=== PATIENT | female | born 1985 | race African-American/Black ===

== ENCOUNTER 2017-03-19 20:54 | Observation (INO) | payer MEDICARE, MEDICAID ==
[~2017-03-19] VITALS: Ht 180.3 cm; Wt 203.4 kg
[~2017-03-19 20:54] MED LIST: BUSP10TA PO; BUSP30TA PO; CIPR-9 PO; HYDR12.57 PO; HYDR25TA5 PO; LEVS0.123 PO; LEXA10TA PO; LEXA20TA PO; LORA-474 PO; MEDR4PAK PO; METO25TA3 PO; METR-1 PO; PEDISOL2 OROPHARYNG; REGL5TAB PO; VENTAER INH; ZOFR8TAB4 SL
[2017-03-19 23:59] VITALS: BP 120/83; PULSE 95; RESP 16; TEMP 98.2; O2SAT 99
[2017-03-20] MEDS ORDERED: ONDANSETRON HCL 4 MG/2 ML VIAL IV PUSH PRN (02:30)
[2017-03-20] MEDS ORDERED: ACETAMINOPHEN 500 MG CPLT PO PRN (02:30)
[2017-03-20 02:59] VITALS: BP 114/78; PULSE 68; RESP 18; TEMP 98.5; O2SAT 97
[2017-03-20 03:12] VITALS: O2SAT 98
[2017-03-20 03:13] LABS: TROPONIN I LESS THAN 0.02 NG/ML (0.02-0.05)
[2017-03-20] MEDS ORDERED: MORPHINE SULFATE 2 MG/ML INJ IV SCH (03:30)
[2017-03-20 05:20] VITALS: PULSE 85
[2017-03-20] MEDS ORDERED: diphenhydrAMINE HCL 25 MG CAP PO ONE (07:45)
[2017-03-20 07:47] VITALS: BP 126/58; PULSE 79; RESP 21; TEMP 98.2; O2SAT 95
[2017-03-20 08:46] VITALS: O2SAT 98
--- NOTE | 2017-03-20 08:53 | HHI.HP ---
HPI Primary Care Physician Non-Staff Chief Complaint Chest pain History of Present Illness This is a 31-year-old female that presents to ED and [place] to be evaluated for chest discomfort and was subsequently transported via [facility] to chest pain center to further evaluate. Denies history of CAD and states that she had a cardiac catheterization between 1-2 years ago and that it was okay. States there were no blockages. She states that she has had 3 days a constant sharp central chest discomfort. Found nothing to worsen or improve her symptoms. She states she is short of breath with walking. Denies nausea or diaphoresis. States she had a similar episode when she needed her heart catheterization about 1-2 years ago. Does not fall cardiology. Upon reviewing records she also had a 2-D echo June 2016 as she was being evaluated for pulmonary hypertension was found to have an EF of 60-65% and no evidence of pulmonary hypertension. Review of Systems General: Patient denies fevers, chills recent, and recent travel HEENT: Patient denies headache, sore throat, difficulty swallowing. Cardiovascular: Has the chest discomfort as mentioned above. Denies sensation of heart beating rapidly or irregularly. No syncope. Denies diaphoresis. Respiratory: She was short of breath. Denies inspirational chest discomfort. Denies coughing wheezing or hemoptysis. GI: Patient denies nausea, vomiting, diarrhea, abdominal pain, bloody stools. Musculoskeletal: Patient denies joint pain or edema. Denies calf pain or edema. Neurovascular: Patient denies numbness, tingling, weakness in extremities. Denies headache. Endocrine: Denies polyuria and polydipsia. Hematologic: Denies easy bruising. Skin: Denies rash or itching. Past Family Social History Allergies: Coded Allergies: aspirin (Unverified Allergy, Severe, 02/10/17) house dust (Unverified Allergy, Severe, 02/10/17) hydrocodone (Unverified Allergy, Severe, 02/10/17) furosemide (Verified Allergy, Intermediate, 02/10/17) penicillin G (Verified Allergy, Mild, HIVES, 03/16/17) Past Medical History Hypertension, asthma, sleep apnea without CPAP device, and obesity. Denies hyperlipidemia, diabetes, and CAD. Past Surgical History Foot surgery. Reported Medications Reported Meds & Active Scripts Active Ventolin Hfa 18 GM Inh (Albuterol Sulfate) 90 Mcg/Act Aer 2 Puff INH Q4-6H PRN Reported Buspirone (Buspirone HCl) 10 Mg Tab 10 Mg PO DAILY Lexapro (Escitalopram Oxalate) 20 Mg Tab 20 Mg PO DAILY Hydrochlorothiazide 25 Mg Tab 25 Mg PO DAILY Metoprolol Tartrate 25 Mg Tab 25 Mg PO BID Hydrochlorothiazide 12.5 Mg Cap 12.5 Mg PO DAILY Buspirone (Buspirone HCl) 30 Mg Tab 30 Mg PO BID Metoprolol Tartrate 25 Mg Tab 25 Mg PO BID Lexapro (Escitalopram Oxalate) 10 Mg Tab 10 Mg PO DAILY Active Ordered Medications Current Medications Medications (Trade) Dose Ordered Sig/Betsy Route Start Time Stop Time Status Last Admin (Tylenol) 500 mg Q4H PRN PO 03/20/17 02:30 (Zofran Inj) 4 mg Q6H PRN IV PUSH 03/20/17 02:30 Family History Denies family history of CAD. Social History Denies tobacco abuse. Denies alcohol or illicit drug use. Physical Exam Vital Signs Vital Signs Date Time Temp Pulse Resp B/P (MAP) Pulse Ox O2 Delivery O2 Flow Rate FiO2 03/20/17 07:47 98.2 79 21 126/58 (80) 95 03/20/17 05:20 85 03/20/17 03:12 98 03/20/17 02:59 98.5 68 18 114/78 (90) 97 03/20/17 00:47 Nasal Cannula 2.00 03/19/17 23:59 98.2 95 16 120/83 (95) 99 Physical Exam GENERAL: This is a well-nourished, well-developed patient, in no apparent distress. She is morbidly obese at 203 kg with a BMI of 62 .Patient speaks in clear complete sentences. Patient is pleasant. HEENT: Head is atraumatic and normocephalic. Neck is supple without lymphadenopathy and trachea is midline. No JVD or carotid bruits. CARDIOVASCULAR: Regular rate and rhythm without murmurs, gallops, or rubs. RESPIRATORY: Clear to auscultation. Breath sounds equal bilaterally. No wheezes , rales, or rhonchi. Chest wall is nontender. No use of accessory muscles. GASTROINTESTINAL: Abdomen is nontender, nondistended. Abdomen soft. No obvious pulsatile mass or bruit. No CVA tenderness. Strong femoral pulses bilaterally. Normal bowel sounds in all quadrants. MUSCULOSKELETAL: Patient is moving upper and lower extremities freely. No calf tenderness or edema, no Homans sign. Strong pulses in upper and lower extremities. NEUROLOGICAL: Patient is alert and oriented. Cranial nerves 2-12 are grossly intact. No focal deficits and speech is clear. SKIN: No rash and turgor is normal. Laboratory Laboratory Tests Test 03/20/17 02:27 Total Creatine Kinase 769 Creatine Kinase MB 2.6 Creatine Kinase MB % 0.3 Troponin I LESS THAN 0.02 Imaging Chest x-ray is okay. CT pulmonary angiogram radiologist as no PE. Enlarged left thyroid gland most likely multinodular goiter underlying mass is difficult to exclude. Bilateral lung nodules nonspecific could be inflammatory, neoplastic processes difficult to exclude and follow-up is suggested with noncontrast CT in 6 months. Course EKGs are sinus rhythm with no significant ST segment depressions or elevations. Caprini VTE Risk Assessment Caprini VTE Risk Assessment: No/Low Risk (score <= 1) Caprini Risk Assessment Model Point Value = 1 Point Value = 2 Point Value = 3 Point Value = 5 Age 41-60 Minor surgery BMI > 25 kg/m2 Swollen legs Varicose veins or History of unexplained or recurrent spontaneous Oral contraceptives or hormone replacement Sepsis (< 1 month) Serious lung disease, including pneumonia (< 1 month) Abnormal pulmonary function Acute myocardial infarction Congestive heart failure (< 1 month) History of inflammatory bowel disease Medical patient at bed rest Age 61-74 Arthroscopic surgery Major open surgery (> 45 min) Laparoscopic surgery (> 45 min) Malignancy Confined to bed (> 72 hours) Immobilizing plaster cast Central venous access Age >= 75 History of VTE Family history of VTE Factor V Leiden Prothrombin [id number] Lupus anticoagulant Anticardiolipin antibodies Elevated serum homocysteine Heparin-induced thrombocytopenia Other congenital or acquired thrombophilia Stroke (< 1 month) Elective arthroplasty Hip, pelvis, or leg fracture Acute spinal cord injury (< 1 month) Prophylaxis Regimen Total Risk Factor Score Risk Level Prophylaxis Regimen 0-1 Low Early ambulation 2 Moderate Order ONE of the following: *Sequential Compression Device (SCD) *Heparin 5000 units SQ BID 3-4 Higher Order ONE of the following medications: *Heparin 5000 units SQ TID *Enoxaparin/Lovenox 40 mg SQ daily (WT < 150 kg, CrCl > 30 mL/min) *Enoxaparin/Lovenox 30 mg SQ daily (WT < 150 kg, CrCl > 10-29 mL/min) *Enoxaparin/Lovenox 30 mg SQ BID (WT < 150 kg, CrCl > 30 mL/min) AND/OR *Sequential Compression Device (SCD) 5 or more Highest Order ONE of the following medications: *Heparin 5000 units SQ TID (Preferred with Epidurals) *Enoxaparin/Lovenox 40 mg SQ daily (WT < 150 kg, CrCl > 30 mL/min) *Enoxaparin/Lovenox 30 mg SQ daily (WT < 150 kg, CrCl > 10-29 mL/min) *Enoxaparin/Lovenox 30 mg SQ BID (WT < 150 kg, CrCl > 30 mL/min) AND *Sequential Compression Device (SCD) Assessment and Plan Assessment and Plan * Atypical Chest pain: Patient has had serial cardiac enzymes and EKGs for ruling out purposes and was seen by Dr. Zain Arcos of cardiology and the chest pain center. With history of chronic catheterization less than 2 years ago that revealed no blockages per the patient and atypical symptoms that appear he musculoskeletal nature and constant for 3 days. Cardiac etiology is less likely and patient will not be discharged home with instructions to follow- up with PCP. I spoke with her PCP office, patient has an appointment for tomorrow at 9:00 in the morning. This was relayed to the patient and she states she will keep the appointment. Patient also authorized us to fax over records of the CTA to her PCP office. The CTA has not been faxed to their office so they may follow-up with the enlarged thyroid gland and bilateral lung nodules. Return to ED for interval issues. * Hypertension: Continue current medication. * Obesity: Patient has been counseled on importance of diet, excess, and weight loss. * Enlarged thyroid gland: Follow-up with PCP. * Bilateral lung nodules: Follow-up with PCP. Will need repeat noncontrast CT within 6 months. Patient is stable at this time. She is agreeable to this plan. Terrence James Mar 20, 2017 08:53
[2017-03-20] MEDS ORDERED: METOPROLOL TARTRATE 25 MG TAB PO SCH (09:00)
[2017-03-20] MEDS ORDERED: HYDROCHLOROTHIAZIDE 25 MG TAB PO SCH (09:00)
[2017-03-20] MEDS ORDERED: RESP: ALBUTEROL 2.5 MG/IPRATROPIUM 0.5 MG NEB (PRN) INH (09:00)
[2017-03-20] MEDS ORDERED: ESCITALOPRAM OXALATE 20 MG TAB PO SCH (09:00)
[2017-03-20] MEDS ORDERED: busPIRone HCL 10 MG TAB PO SCH (09:00)
--- NOTE | 2017-03-20 09:26 | HHI.DCPOC ---
Discharge Care Plan Diagnosis: (1) Chest pain (2) Hypertension (3) Obesity (4) Lung nodules (5) Enlarged thyroid Goals to Promote Your Health FOLLOW UP WITH PCP AND DISCUSS ENLARGED THYROID GLAND AND LUNG NODULES THAT WERE SEEN ON CTA SCAN. WILL NEED REPEAT CT OF CHEST WITHOUT CONTRAST TO EVALUATE LUNG NODULES. * To prevent worsening of your condition and complications * To maintain your health at the optimal level Directions to Meet Your Goals Take your medications as prescribed Follow your dietary instruction Follow activity as directed Keep your appointments as scheduled Take your immunizations and boosters as scheduled If your symptoms worsen call your PCP, if no PCP go to Urgent Care Center or Emergency Room Smoking is Dangerous to Your Health. Avoid second hand smoke Call the 24-hour hour crisis hotline for domestic abuse at Terrence James Mar 20, 2017 09:26
--- NOTE | 2017-03-20 16:33 | EKG ---
Date Performed: 03/20/2017 Time Performed: 02:57:11 PTAGE: 31 years EKG: Sinus rhythm WITH FIRST DEGREE AV BLOCK NONSPECIFIC ST ELEVATION ABNORMAL ECG INTERPRETATION BASED ON A DEFAULT A GE OF 40 YEARS NO PREVIOUS TRACING DOCTOR: Zain Arcos Interpretating Date/Time 03/20/2017 16:31:23
== END 2017-03-20 12:16 | disposition home or self-care (01) ==
LOC: NEDDLT 23:47 → N04A 23:57 → NEPHCDU 03-20 02:08
DX: R07.89 Other chest pain (principal); R06.02 Shortness of breath; I10 Essential (primary) hypertension; R91.8 Other nonspecific abnormal finding of lung field; I44.0 Atrioventricular block, first degree; R94.31 Abnormal electrocardiogram [ECG] [EKG]; J45.909 Unspecified asthma, uncomplicated; G47.30 Sleep apnea, unspecified; E66.9 Obesity, unspecified; Z79.899 Other long term (current) drug therapy
CPT/HCPCS: 82550; 82552; 84484; 93005; G0378; J2270